=== PATIENT | female | born 1955 | race Caucasian/White ===

== ENCOUNTER → 2017-01-08 | Outpatient (CLI) | payer BC ==
[2017-01-09 17:04] LABS: THYROID PEROXIDASE AB 0.4 IU/mL (<9.0)
== END ==
LOC: MOB LAB 08:32
PROVIDERS: ATTEND Nurse Practitioner Family
DX: I31.3 Pericardial effusion (noninflammatory) (principal)
CPT/HCPCS: 36415; 84436; 84443; 84550; 85652; 86038; 86200; 86376; 86431; 86800

== ENCOUNTER → 2017-01-13 | Outpatient (CLI) | payer BC ==
--- NOTE | 2017-01-13 14:26 | EKG ---
[address] [id number] Measurements Intervals [place] Rate: 60 P: 60 ME: 182 QRS: 76 QRSD: 75 T: 64 QT: 390 QTc: 391 Interpretive Statements SINUS RHYTHM No previous ECG available for comparison Electronically Signed On 01-13-17 16:19:19 MDT by [employer] [id number]
== END ==
LOC: MOB EKG 14:07
PROVIDERS: ATTEND Specialist
DX: I31.9 Disease of pericardium, unspecified (principal)
CPT/HCPCS: 93005; 93010